=== PATIENT | male | born 1985 | race Caucasian/White ===

== ENCOUNTER 2017-04-02 10:23 | Inpatient (IN) | payer OTHER ==
[2017-04-02] MEDS ORDERED: MORPHINE ONE (11:59)
[2017-04-02] MEDS ORDERED: MORPHINE IV ONE (12:15)
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
--- NOTE | 2017-04-02 13:47 | XRay Report ---
AP CHEST: HISTORY: chest pain AP view of the chest demonstrates a normal mediastinal and cardiac contour with clear lungs and normal bony and soft tissue structures. IMPRESSION: Unremarkable AP chest.
[2017-04-02] MEDS ORDERED: NACL 0.9% 500 ML 500 ML ONE (13:55)
[2017-04-02 14:16] LABS: Hematocrit 47.6 % (35.5-45.6); Hemoglobin 15.3 gm/dl (11.8-15.2); Mean Corpuscular HGB Conc 32 % (32-34); Mean Corpuscular Hemoglobin 30 pg (28-32); Mean Corpuscular Volume 92 fl (84-94); Platelet Count 357 K/mm3 (140-440); Red Blood Count 5.19 M/mm3 (3.65-5.03); Red Cell Distribution Width 12.7 % (13.2-15.2)
[2017-04-02 14:18] LABS: INR 1.07 (0.87-1.13)
[2017-04-02 14:19] LABS: Partial Thromboplastin Time 29.9 Sec. (24.2-36.6)
[2017-04-02 14:51] LABS: Band Neutrophils # (Manual) 1.6 K/mm3; Basophils % (Manual) 0 % (0.0-1.8); Eosinophils % (Manual) 0 % (0.0-4.3); Total Cells Counted 100
[2017-04-02 14:52] LABS: Macrocytosis Few; Platelet Estimate Consistent w Auto
[2017-04-02 14:54] LABS: Alanine Aminotransferase 25 units/L (7-56); Albumin 4.4 g/dL (3.9-5); BUN/Creatinine Ratio 9; Blood Urea Nitrogen 9 mg/dL (9-20); Calcium 8.9 mg/dL (8.4-10.2); Hemolysis Index 13
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
[2017-04-02] MEDS ORDERED: KETALAR IV ONE (15:00)
[2017-04-02] MEDS: DIPRIVAN 10 MG/ML IV ONE (15:22)
[2017-04-02] MEDS: KETALAR IV ONE ×4 (15:23→15:41)
[2017-04-02] MEDS ORDERED: K-DUR PO ONE ×2 (15:48→22:23)
[2017-04-02] MEDS ORDERED: NACL 0.9% 1000 ML 1,000 ML IV ONE ×2 (15:49)
--- NOTE | 2017-04-02 16:40 | XRay Report ---
FINAL REPORT EXAM: XR SHOULDER 2+V LT HISTORY: should reduction left side TECHNIQUE: Frontal radiograph of the left shoulder PRIORS: None. FINDINGS: No fracture. No dislocation. Normal mineralization. No soft tissue abnormality. IMPRESSION: No acute left shoulder abnormality.
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
[2017-04-02] MEDS ORDERED: AMBIEN PO PRN (21:57)
[2017-04-02] MEDS ORDERED: DULCOLAX PR PRN (21:57)
[2017-04-02] MEDS ORDERED: MORPHINE IV PRN (21:57)
[2017-04-02] MEDS ORDERED: MILK OF MAGNESIA PO PRN (21:57)
[2017-04-02] MEDS ORDERED: ZOFRAN IV PRN (21:57)
[2017-04-02] MEDS ORDERED: TYLENOL PO PRN (21:57)
[2017-04-02] MEDS ORDERED: DILAUDID IV PRN (21:57)
[2017-04-02] MEDS ORDERED: LOVENOX SUB-Q SCH (22:00)
[2017-04-02] MEDS ORDERED: D5NS 1,000 ML IV SCH (22:00)
[2017-04-02] MEDS ORDERED: HABITROL TD ONE (22:27)
[2017-04-02] MEDS: PEPCID PO SCH (22:39)
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
[2017-04-03 07:42] LABS: Basophils # (Auto) 0.1 K/mm3 (0.0-0.1); Basophils % (Auto) 0.5 % (0.0-1.8); Eosinophils # (Auto) 0.1 K/mm3 (0.0-0.4); Eosinophils % (Auto) 0.3 % (0.0-4.3); Hemoglobin 15.1 gm/dl (11.8-15.2); Lymphocytes # (Auto) 1.8 K/mm3 (1.2-5.4); Lymphocytes % (Auto) 12.1 % (13.4-35.0); Mean Corpuscular HGB Conc 34 % (32-34); Mean Corpuscular Hemoglobin 30 pg (28-32); Mean Corpuscular Volume 89 fl (84-94); Monocytes # (Auto) 1.3 K/mm3 (0.0-0.8); Monocytes % (Auto) 8.5 % (0.0-7.3); Platelet Count 287 K/mm3 (140-440); Red Blood Count 5.05 M/mm3 (3.65-5.03); Red Cell Distribution Width 12.9 % (13.2-15.2)
[2017-04-03 07:50] LABS: Alanine Aminotransferase 27 units/L (7-56); Albumin 4.2 g/dL (3.9-5); BUN/Creatinine Ratio 9; Blood Urea Nitrogen 9 mg/dL (9-20); Calcium 8.5 mg/dL (8.4-10.2); Hemolysis Index 25
[2017-04-03] MEDS: PEPCID PO SCH (10:37)
[2017-04-03] MEDS: PERCOCET 5/325 PO PRN ×2 (10:37→17:47)
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
[2017-04-03 17:07] VITALS: BP 123/72
[2017-04-03] MEDS ORDERED: Fluarix Quad 2017-2018(36 MOS+ IM ONE (18:00)
== END 2017-04-03 19:32 | disposition home or self-care (01) | DRG 563 ==
LOC: ED 10:23 → 3A 21:57
PROVIDERS: ADMIT Internal Medicine; ATTEND Internal Medicine
PROC: 0RSKXZZ Reposition Left Shoulder Joint, External Approach (ICD-10-PCS; principal; 2017-04-02)
PROC: 3E0234Z Introduction of Serum, Toxoid and Vaccine into Muscle, Percutaneous Approach (ICD-10-PCS; 2017-04-03)
DX: S43.005A Unspecified dislocation of left shoulder joint, initial encounter (principal); M62.82 Rhabdomyolysis; D72.829 Elevated white blood cell count, unspecified; E87.6 Hypokalemia; Z90.49 Acquired absence of other specified parts of digestive tract; F17.200 Nicotine dependence, unspecified, uncomplicated; F12.90 Cannabis use, unspecified, uncomplicated; R58 Hemorrhage, not elsewhere classified; Z82.49 Family history of ischemic heart disease and other diseases of the circulatory system; Y93.89 Activity, other specified; Y92.89 Other specified places as the place of occurrence of the external cause; Y99.8 Other external cause status; Z23 Encounter for immunization
CPT/HCPCS: 36415; 70450; 70486; 71045; 72125; 80053; 80320; 82550; 84484; 85007; 85025; 85610; 85730; 86850; 86900; 86901; 90686; 93005; 93010; 96361; 96374; G0480; J1650; J2270; J2704; J7030; J7040; J7042